=== PATIENT | male | born 1985 | race Caucasian/White ===

== ENCOUNTER 2017-07-24 07:16 | Emergency (ER) | payer OTHER ==
[~2017-07-24] VITALS: Ht 177.8 cm; Wt 58.2 kg
[~2017-07-24 07:16] MED LIST: CIPR-9 PO; FLUO40CA PO; HYDR-3516 PO; KLON2TAB PO; METR-1 PO; OPAN10TA19 PO
[2017-07-24 07:31] VITALS: BP 140/78; PULSE 78; RESP 20; TEMP 98; O2SAT 99
[2017-07-24 07:53] LABS: AUTOMATED NEUTROPHIL # 4.5 TH/MM3 (1.8-7.7); BASOPHIL # 0.1 TH/MM3 (0-0.2); BASOPHIL % 0.9 % (0.0-2.0); EOSINOPHIL # 0.1 TH/MM3 (0-0.4); HEMATOCRIT 46.4 % (39.0-51.0); LYMPH % 26.8 % (9.0-44.0); LYMPHOCYTE # 1.9 TH/MM3 (1.0-4.8); MEAN CORPUSCULAR HEMOGLOBIN 32.7 PG (27.0-34.0); MEAN CORPUSCULAR HGB CONC 34.5 % (32.0-36.0); MONO % 6.1 % (0.0-8.0); MONOCYTE # 0.4 TH/MM3 (0-0.9); NEUT % 64.2 % (16.0-70.0); PLATELET COUNT 248 TH/MM3 (150-450); RED BLOOD COUNT 4.88 MIL/MM3 (4.50-5.90); RED CELL DISTRIBUTION WIDTH 14.3 % (11.6-17.2)
[2017-07-24 08:06] LABS: ALBUMIN 4.3 GM/DL (3.4-5.0); ALT (GPT) 25 U/L (12-78); AST (GOT) 29 U/L (15-37); BICARBONATE 26.7 MEQ/L (21.0-32.0); BLOOD UREA NITROGEN 9 MG/DL (7-18); CALCIUM 8.7 MG/DL (8.5-10.1); CHLORIDE 108 MEQ/L (98-107); GLOMERULAR FILTRATION RATE 111 ML/MIN (>89); GLUCOSE,RANDOM 86 MG/DL (74-106); SODIUM (NA) 142 MEQ/L (136-145)
[2017-07-24 08:16] LABS: ALKALINE PHOSPHATASE 71 U/L (45-117); TOTAL BILIRUBIN ADULT 0.9 MG/DL (0.2-1.0); TOTAL PROTEIN 7.9 GM/DL (6.4-8.2)
[2017-07-24] MEDS ORDERED: PROZ40CA PO (08:22)
[2017-07-24] MEDS ORDERED: BUSP15TA PO (08:22)
[2017-07-24] MEDS ORDERED: BUSPAR (08:22)
--- NOTE | 2017-07-24 08:29 | PD ---
HPI Chief Complaint: Psychiatric Symptoms Time Seen by Provider: 07:27 Travel History International Travel<30 days: No Contact w/Intl Traveler<30days: No Traveled to known affect area: No History of Present Illness HPI 31-year-old male brought in under the Duran act after stating he was going to kill his girlfriend and then kill himself. Patient was physically loading a shotgun before taking in the custody. Patient reports no recent medical illness. He denies alcohol or drug abuse. Patient is taking Buspirone (Buspirone HCl) 15 Mg Tab 15 Mg PO BID Prozac (Fluoxetine HCl) 40 Mg Cap 40 Mg PO DAILY Klonopin (Clonazepam) 2 Mg Tab 2 Mg PO BID Patient states he has been taking his medications regularly. He is allergic to aripiprazole. PFSH Past Medical History Arthritis: Yes Diminished Hearing: No GERD: Yes Psychiatric: Yes (OCD) Past Surgical History Oral Surgery: Yes Other Surgery: Yes (NASAL SURGERY) Social History Alcohol Use: No Tobacco Use: Yes Substance Use: No Allergies-Medications (Allergen,Severity, Reaction): Coded Allergies: aripiprazole (Verified Allergy, Severe, 07/24/17) MUSCLE'S TENSE UP Reported Meds & Prescriptions Reported Meds & Active Scripts Active Reported Buspirone (Buspirone HCl) 15 Mg Tab 15 Mg PO BID Prozac (Fluoxetine HCl) 40 Mg Cap 40 Mg PO DAILY Klonopin (Clonazepam) 2 Mg Tab 2 Mg PO BID Review of Systems Except as stated in HPI: all other systems reviewed are Neg General / Constitutional: No: Fever Eyes: No: Visual changes HENT: No: Headaches Cardiovascular: No: Chest Pain or Discomfort Respiratory: No: Shortness of Breath Gastrointestinal: No: Abdominal Pain Genitourinary: No: Dysuria Musculoskeletal: No: Pain Skin: No Rash Neurologic: No: Weakness Psychiatric: No: Depression Endocrine: No: Polydipsia Hematologic/Lymphatic: No: Easy Bruising Physical Exam Narrative GENERAL: Patient appears in no acute distress. SKIN: Warm and dry. Normal color. Normal turgor HEAD: Atraumatic. Normocephalic. EYES: Pupils equal and round. No scleral icterus. No injection or drainage. ENT: No nasal bleeding or discharge. Mucous membranes pink and moist. NECK: Trachea midline. Pharynx is clear. Airways patent. CARDIOVASCULAR: Regular rate and rhythm. RESPIRATORY: No accessory muscle use. Clear to auscultation. Breath sounds equal bilaterally. MUSCULOSKELETAL: Extremities without clubbing, cyanosis, or edema. No obvious deformities. NEUROLOGICAL: Awake and alert. No obvious cranial nerve deficits. Motor grossly within normal limits. Five out of 5 muscle strength in the arms and legs. Normal speech. Data Data Last Documented VS Vital Signs Date Time Temp Pulse Resp B/P (MAP) Pulse Ox O2 Delivery O2 Flow Rate FiO2 07/24/17 07:31 98.0 78 20 140/78 (98) 99 Orders Orders Complete Blood Count With Diff (07/24/17 07:36) Comprehensive Metabolic Panel (07/24/17 07:36) Thyroid Stimulating Hormone (07/24/17 07:36) Urinalysis - C+S If Indicated (07/24/17 07:36) Psych Screen (07/24/17 07:36) Drug Screen, Random Urine (07/24/17 07:36) Alcohol (Ethanol) (07/24/17 07:36) Labs Laboratory Tests Test 07/24/17 07:35 White Blood Count 7.0 TH/MM3 Red Blood Count 4.88 MIL/MM3 Hemoglobin 16.0 GM/DL Hematocrit 46.4 % Mean Corpuscular Volume 95.0 FL Mean Corpuscular Hemoglobin 32.7 PG Mean Corpuscular Hemoglobin Concent 34.5 % Red Cell Distribution Width 14.3 % Platelet Count 248 TH/MM3 Mean Platelet Volume 9.0 FL Neutrophils (%) (Auto) 64.2 % Lymphocytes (%) (Auto) 26.8 % Monocytes (%) (Auto) 6.1 % Eosinophils (%) (Auto) 2.0 % Basophils (%) (Auto) 0.9 % Neutrophils # (Auto) 4.5 TH/MM3 Lymphocytes # (Auto) 1.9 TH/MM3 Monocytes # (Auto) 0.4 TH/MM3 Eosinophils # (Auto) 0.1 TH/MM3 Basophils # (Auto) 0.1 TH/MM3 CBC Comment DIFF FINAL Differential Comment Blood Urea Nitrogen 9 MG/DL Creatinine 0.80 MG/DL Random Glucose 86 MG/DL Total Protein 7.9 GM/DL Albumin 4.3 GM/DL Calcium Level 8.7 MG/DL Alkaline Phosphatase 71 U/L Aspartate Amino Transf (AST/SGOT) 29 U/L Alanine Aminotransferase (ALT/SGPT) 25 U/L Total Bilirubin 0.9 MG/DL Sodium Level 142 MEQ/L Potassium Level 4.1 MEQ/L Chloride Level 108 MEQ/L Carbon Dioxide Level 26.7 MEQ/L Anion Gap 7 MEQ/L Estimat Glomerular Filtration Rate 111 ML/MIN Thyroid Stimulating Hormone 3rd Gen 0.515 uIU/ML Ethyl Alcohol Level 195 MG/DL MDM Medical Decision Making Medical Screen Exam Complete: Yes Emergency Medical Condition: Yes Differential Diagnosis Duran act. Suicidal ideation. Homicidal ideation. Narrative Course Patient appears medically stable at time of exam. Psychiatric labs ordered per protocol. Patient is medically cleared for psychiatric evaluation. Condition: Stable Herman Ram Jul 24, 2017 08:28
[2017-07-24 10:42] VITALS: BP 117/67; PULSE 64; RESP 16; TEMP 98.5; O2SAT 97
[2017-07-24 18:13] VITALS: BP 143/69; PULSE 88; RESP 16; TEMP 99.8; O2SAT 97
[2017-07-24 20:10] VITALS: BP 154/74; PULSE 76; RESP 17; TEMP 98.3; O2SAT 98
[2017-07-24 20:55] LABS: BILIRUBIN, URINE NEG (NEG); BLOOD, URINE NEG (NEG); GLUCOSE,URINE 300 mg/dL (NEG); KETONE, URINE 40 mg/dL (NEG); MUCUS URINE FEW /lpf (OCC); NITRITE,URINE NEG (NEG); PH, URINE 6.5 (5.0-8.5); URINE COLOR YELLOW (YELLW/STRAW); URINE LEUKOCYTE ESTERASE NEG (NEG)
[2017-07-25 01:11] VITALS: BP 134/74; PULSE 72; RESP 18; TEMP 98.9; O2SAT 98
[2017-07-25 05:22] VITALS: BP 134/75; PULSE 70; RESP 17; TEMP 99.2; O2SAT 98
--- NOTE | 2017-07-25 10:17 | PD ---
History of Present Illness Chief Complaint: Psychiatric Symptoms Time Seen by Provider: 09:30 Travel History International Travel<30 Days: No Contact w/Intl Traveler<30days: No Known affected area: No Legal Status Legal Status: Duran Act Duran Act Signed By: Mansoor Moreno History of Present Illness: History of Present Illness HPI 31-year-old, male with reported history of OCD, anxiety and depression who is brought in under the Duran act initiated by law enforcement. The police were called by the patient's girlfriend. The Duran act alleges that the patient made suicidal threats that he was going to harm his girlfriend and then himself. He had a loaded shotgun before taken into custody. The patient did not make any attempt to harm himself or harm anyone else. Electronic medical record is reviewed. No previous contact with [facility] psychiatry. Toxicology is negative. BAL on arrival was 195. The patient monitored in secure environment and presented no behavioral dysregulation and no suicidality. Patient is seen with Maite Bautista RN present. The patient is alert, oriented 4, calm and engaging. He is clinically sober at this time with no evidence of any withdrawal symptoms. He is dressed in [facility] and maintaining basic hygiene. His affect is appropriate and variable with adequate amount of eye contact. His speech is clear, logical and goal directed. The patient does not present any evidence of any psychosis and I can elicit no delusions and no paranoia. He states that he had been feeling somewhat depressed due to recent medication changes. He also states "the issue is that I had too much to drink and that is what happened. He states that he had approximately 10 drinks prior to the incident and that he does not usually drink on a daily basis. The patient states that in the past several weeks he had to get off his prescribed antidepressant because his insurance was not paying for it anymore. He started back on Prozac approximately 1 week ago. The patient denies any suicidal or homicidal ideation, intent or plan. He also states that he did not threaten to hurt his girlfriend at all. The patient's attention and concentration is appropriate. Sleeping well and adequate level of energy. He is requesting to be discharged and wants to continue treatment with his outpatient provider. In terms of his obsessive-compulsive disorder diagnosis he states that he has a tendency to over think things, checking behavior but that these are under control with the Klonopin. Telephone call to his girlfriend Leeann at [phone].She denies that he made threats to harm her. She also states that she believes that the situation was due to his consumption of alcohol alcohol. Weapon has been removed from the home. She has no concerns if he is discharged from the hospital. [facility] Past Medical History Arthritis: Yes Diminished Hearing: No GERD: Yes Psychiatric: Yes (OCD) Past Surgical History Oral Surgery: Yes Other Surgery: Yes (NASAL SURGERY) Psychiatric History Psychiatric History Hx Psychiatric Treatment: Patient began psychiatric treatment approximately at age 21rd for symptoms of depression. He has 1 hospitalization at age 21 for suicidal ideation. He currently is under care of his primary care physician Dr. Schilling. He reports he is medication compliant. History of Inpatient Treatment: Yes (At age 22) Guns or firearms in home: No (Firearms have been removed from the home as per his girlfriend Leeann) Social History Patient is born in [place] and moved to [place] approximately 1-1/2 year ago. He is and in the process of a divorce. He is currently living with his girlfriend. He has no children but is almost certain his girlfriend is . 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 Hx Alcohol Use: No Hx Tobacco Use: Yes Hx Substance Use: Yes Substance Use Type: Alcohol (Claims that in the past he did drink but is not actively drinking. Has a history of taking Antabuse.) Hx of Substance Use Treatment: No Family Psychiatric History Negative Allergies-Medications (Allergen,Severity, Reaction): Coded Allergies: aripiprazole (Verified Allergy, Severe, 07/24/17) MUSCLE'S TENSE UP Reported Meds & Prescriptions Reported Meds & Active Scripts Active Reported Buspirone (Buspirone HCl) 15 Mg Tab 15 Mg PO BID Prozac (Fluoxetine HCl) 40 Mg Cap 40 Mg PO DAILY Klonopin (Clonazepam) 2 Mg Tab 2 Mg PO BID Review of Systems Psychiatric: COMPLAINS OF: Anxiety Except as stated in HPI: all other systems reviewed are Neg Mental Status Examination Appearance: Appropriate Consciousness: Alert Orientation: x4 Motor Activity: Normal gait Speech: Unremarkable Language: Adequate Fund of Knowledge: Adequate Attention and Concentration: Adequate Memory: Unremarkable Mood: Anxious Affect: Appropriate Thought Process & Associations: Intact, Logical, Goal directed Thought Content: Appropriate Hallucination Type: None Delusion Type: None Suicidal Ideation: No Suicidal Plan: No Suicidal Intention: No Homicidal Ideation: No Homicidal Plan: No Homicidal Intention: No Insight: Adequate Judgment: Adequate MDM Medical Decision Making Medical Record Reviewed: Yes Assessment/Plan 31-year-old male with history of OCD, anxiety and depression who is brought in under the Duran act after allegedly stating he was going to kill his girlfriend and then kill himself. Patient was physically loading a shotgun before taking in the custody. Patient was under the influence of alcohol when he made the statements. The patient was allowed to sober up clinically and presented no behavioral dysregulation and no suicidality. The patient presents no cognitive impairment. No suicidal or homicidal ideation, intent or plan. He is future oriented and has adequate protective factors in place. He wants to be discharged and wants to follow up with his outpatient provider. Collateral was obtained from his girlfriend who presents no concerns for her safety or his safety and who corroborates the information he presented. She has taken the weapon out of the home. The patient at this time does not meet criteria to remain under the Duran act. He is provided psychoeducation and support. He will follow-up with his outpatient provider. The Duran act as lifted. Psychiatrically clear for discharge. Orders Orders Diet Regular Basic (07/24/17 Lunch) Diet Regular Basic (07/24/17 Dinner) Diet Regular Basic (07/25/17 Breakfast) Diet Regular Basic (07/25/17 Lunch) Results Vital Signs Date Time Temp Pulse Resp B/P (MAP) Pulse Ox O2 Delivery O2 Flow Rate FiO2 07/25/17 05:22 99.2 70 17 134/75 (94) 98 Room Air 07/25/17 01:11 98.9 72 18 134/74 (94) 98 Room Air 07/24/17 20:10 98.3 76 17 154/74 (100) 98 Room Air 07/24/17 18:13 99.8 88 16 143/69 (93) 97 Room Air 07/24/17 10:42 98.5 64 16 117/67 (84) 97 Room Air Laboratory Tests Test 07/24/17 20:03 Urine Color YELLOW Urine Turbidity CLEAR Urine pH 6.5 Urine Specific [place] 1.020 Urine Protein NEG Urine Glucose (UA) 300 Urine Ketones 40 Urine Occult Blood NEG Urine Nitrite NEG Urine Bilirubin NEG Urine Urobilinogen LESS THAN 2.0 Urine Leukocyte Esterase NEG Urine RBC LESS THAN 1 Urine WBC LESS THAN 1 Urine Mucus FEW Microscopic Urinalysis Comment CULT NOT INDICATED Urine Opiates Screen NEG Urine Barbiturates Screen NEG Urine Amphetamines Screen NEG Urine Benzodiazepines Screen NEG Urine Cocaine Screen NEG Urine Cannabinoids Screen NEG Diagnosis Primary Impression: Alcohol intoxication Additional Impressions: Alcohol-induced mood disorder OCD (obsessive compulsive disorder) Psychiatrically Cleared: Yes Med/ Other Pt Specific Info: No Change to Meds Disposition: 01 DISCHARGE HOME Condition: Stable Problem Qualifiers Primary Impression: Alcohol intoxication Qualified Codes: F10.920 - Alcohol use, unspecified with intoxication, uncomplicated Additional Impressions: OCD (obsessive compulsive disorder) Qualified Codes: F42.9 - Obsessive-compulsive disorder, unspecified Marley Elmore [facility] Jul 25, 2017 10:17
[2017-07-25 10:59] VITALS: BP 131/79; PULSE 81; RESP 18; O2SAT 97
--- NOTE | 2017-07-25 11:12 | PD ---
Physical Exam Time Seen by Provider: 11:10 JOSE ALEJANDRO Grace has evaluated patient, lifted the Duran act and cleared the patient for discharge. Data Data Last Documented VS Vital Signs Date Time Temp Pulse Resp B/P (MAP) Pulse Ox O2 Delivery O2 Flow Rate FiO2 07/25/17 10:59 81 18 131/79 (96) 97 Room Air 07/25/17 05:22 99.2 Orders Orders Complete Blood Count With Diff (07/24/17 07:36) Comprehensive Metabolic Panel (07/24/17 07:36) Thyroid Stimulating Hormone (07/24/17 07:36) Urinalysis - C+S If Indicated (07/24/17 07:36) Psych Screen (07/24/17 07:36) Drug Screen, Random Urine (07/24/17 07:36) Alcohol (Ethanol) (07/24/17 07:36) Diet Regular Basic (07/24/17 Lunch) Diet Regular Basic (07/24/17 Dinner) Diet Regular Basic (07/25/17 Breakfast) Diet Regular Basic (07/25/17 Lunch) Labs Laboratory Tests Test 07/24/17 07:35 07/24/17 20:03 White Blood Count 7.0 TH/MM3 Red Blood Count 4.88 MIL/MM3 Hemoglobin 16.0 GM/DL Hematocrit 46.4 % Mean Corpuscular Volume 95.0 FL Mean Corpuscular Hemoglobin 32.7 PG Mean Corpuscular Hemoglobin Concent 34.5 % Red Cell Distribution Width 14.3 % Platelet Count 248 TH/MM3 Mean Platelet Volume 9.0 FL Neutrophils (%) (Auto) 64.2 % Lymphocytes (%) (Auto) 26.8 % Monocytes (%) (Auto) 6.1 % Eosinophils (%) (Auto) 2.0 % Basophils (%) (Auto) 0.9 % Neutrophils # (Auto) 4.5 TH/MM3 Lymphocytes # (Auto) 1.9 TH/MM3 Monocytes # (Auto) 0.4 TH/MM3 Eosinophils # (Auto) 0.1 TH/MM3 Basophils # (Auto) 0.1 TH/MM3 CBC Comment DIFF FINAL Differential Comment Blood Urea Nitrogen 9 MG/DL Creatinine 0.80 MG/DL Random Glucose 86 MG/DL Total Protein 7.9 GM/DL Albumin 4.3 GM/DL Calcium Level 8.7 MG/DL Alkaline Phosphatase 71 U/L Aspartate Amino Transf (AST/SGOT) 29 U/L Alanine Aminotransferase (ALT/SGPT) 25 U/L Total Bilirubin 0.9 MG/DL Sodium Level 142 MEQ/L Potassium Level 4.1 MEQ/L Chloride Level 108 MEQ/L Carbon Dioxide Level 26.7 MEQ/L Anion Gap 7 MEQ/L Estimat Glomerular Filtration Rate 111 ML/MIN Thyroid Stimulating Hormone 3rd Gen 0.515 uIU/ML Ethyl Alcohol Level 195 MG/DL Urine Color YELLOW Urine Turbidity CLEAR Urine pH 6.5 Urine Specific [place] 1.020 Urine Protein NEG mg/dL Urine Glucose (UA) 300 mg/dL Urine Ketones 40 mg/dL Urine Occult Blood NEG Urine Nitrite NEG Urine Bilirubin NEG Urine Urobilinogen LESS THAN 2.0 MG/DL Urine Leukocyte Esterase NEG Urine RBC LESS THAN 1 /hpf Urine WBC LESS THAN 1 /hpf Urine Mucus FEW /lpf Microscopic Urinalysis Comment CULT NOT INDICATED Urine Opiates Screen NEG Urine Barbiturates Screen NEG Urine Amphetamines Screen NEG Urine Benzodiazepines Screen NEG Urine Cocaine Screen NEG Urine Cannabinoids Screen NEG MDM Supervised Visit with INDER: No Narrative Course JOSE ALEJANDRO Roach has evaluated patient, lifted the Duran act and cleared the patient for discharge. Patient contracts safety. Denies suicidal or homicidal ideations. Patient will be provided community resource packet to [facility] for follow-up. Has friends and family for support. Patient was medically cleared by alternate provider prior to psych screening. Patient has been evaluated by psychiatry and and is now cleared for discharge. Diagnosis Primary Impression: Alcohol intoxication Qualified Codes: F10.920 - Alcohol use, unspecified with intoxication, uncomplicated Additional Impression: Alcohol-induced mood disorder Referrals: [facility] (Out patient) [facility] Primary Care Physician Psychiatrist Devin [facility] Patient Instructions: Abuse of Alcohol (ED), Alcohol Dependence (ED), Alcohol Intoxication (ED), General Instructions Departure Forms: Tests/Procedures Additional Instruction: Contract safety to your self and others Stop drinking alcohol Follow-up in the community for support, such as Alcoholics Anonymous Follow-up with psychiatry Follow-up with primary care provider Follow-up with Elian Hernandez Return to the emergency department immediately with worsening of symptoms Follow up with your medical and psychiatric providers. Med/Other Pt SpecificInfo: No Change to Meds, No Meds Exist/No RX given Disposition: 01 DISCHARGE HOME Condition: Stable Breana Peng Jul 25, 2017 11:12
== END 2017-07-25 11:31 | disposition home or self-care (01) ==
LOC: NEPD 07:16 → NEPJ 07-25 11:31
DX: F10.920 Alcohol use, unspecified with intoxication, uncomplicated (principal); F42.9 Obsessive-compulsive disorder, unspecified; F32.9 Major depressive disorder, single episode, unspecified; Y90.6 Blood alcohol level of 120-199 mg/100 ml; Z72.0 Tobacco use; Z79.899 Other long term (current) drug therapy
CPT/HCPCS: 80053; 80307; 81001; 84443; 85025; 99283